=== PATIENT | female | born 1965 | race Caucasian/White ===

== ENCOUNTER → 2017-08-15 | Outpatient (CLI) | payer BC ==
--- NOTE | 2017-08-15 18:36 | RAD ---
History: Shortness of breath Study: PA and lateral chest Comparison: None Findings: The lungs are clear and the heart and mediastinum are unremarkable. There is no lung consol idation or pleural effusion. No significant bony abnormality is demonstrated. Impression: Negative Reported By:
== END ==
LOC: RAD 18:04
PROVIDERS: ATTEND Nurse Practitioner Family
DX: R06.02 Shortness of breath (principal); J41.0 Simple chronic bronchitis
CPT/HCPCS: 71046